=== PATIENT | male | born 1970 | race Caucasian/White ===

== ENCOUNTER 2016-12-19 21:35 | Emergency (ER) | payer OTHER ==
[~2016-12-19] VITALS: Ht 172.7 cm; Wt 81.6 kg
[~2016-12-19 21:35] MED LIST: CIPRO250 M1 PO; DOXYCYCLINE HY100 M4 PO; FLOMAX(MONOGRA0.4 MG PO; FLOMAX0.4 M1 PO; HYDROCODON-ACE1 EAC2 PO; MOTRIN 600 MG600 MG PO; NORCO 325 MG-51 TAB PO; PERCOCET 325 MG1 TA2 PO; PRINIVIL 5MG5 MG PO; ZOFRAN ODT4 MG PO
[2016-12-19 23:17] LABS: ABSOLUTE BASOPHIL COUNT 0 /CUMM (0.0-0.2); ABSOLUTE EOSINOPHIL COUNT 0.2 /CUMM (0.0-0.7); ABSOLUTE GRANULOCYTE CT 8.7 /CUMM (1.4-6.5); ABSOLUTE LYMPH COUNT 1.7 /CUMM (1.2-3.4); ABSOLUTE MONOCYTE COUNT 0.7 /CUMM (0.10-0.60); BASOPHIL % 0.2 % (0.0-2.0); EOSINOPHIL % 1.8 % (0-5); GRANULOCYTE % 76.7 % (42.2-75.2); HEMATOCRIT 45.8 % (42-52); MEAN CORPUSCULAR HGB CONC 33.7 G/DL (33.0-37.0); MEAN PLATELET VOLUME 11.1 FL (7.4-10.4); PLATELET COUNT 191 /CUMM (130-400); RBC DISTRIBUTION WIDTH 13.6 % (11.5-14.5); RED BLOOD CELL CT 5.33 /CUMM (4.70-6.10); WHITE BLOOD CELL COUNT 11.4 /CUMM (4.8-10.8)
--- NOTE | 2016-12-19 23:32 | ED GI/GU/ABDOMINAL COMPLAINT ---
See Addendum History of Present Illness General Chief Complaint: Abdominal Pain/Flank Pain Stated Complaint: RIGHT FLANK PAIN Source: patient, family, old records Exam Limitations: no limitations Vital Signs & Intake/Output Vital Signs & Intake/Output Vital Signs Date Time Temp Pulse Resp B/P B/P Pulse O2 O2 Flow FiO2 Mean Ox Delivery Rate 12/20 0045 96.4 76 20 131/87 98 Room Air 12/20 0024 98.0 78 18 152/72 12/19 2218 98.0 77 18 158/101 97 Room Air ED Intake and Output 12/20 0000 12/19 1200 Intake Total Output Total Balance Patient 81.647 kg Weight Weight Reported by Patient Measurement Method Allergies Coded Allergies: phenobarbital (Severe, "HE ALMOST FROM IT" PER MOM 12/19/16) Penicillins (Intermediate, HIVES 05/21/16) Reconcile Medications Ciprofloxacin HCl (Cipro) 250 MG TABLET 1 TAB PO BID UTI Doxycycline Hyclate 100 MG TABLET 1 TAB PO BID CELLULITIS LEFT KNEE Hydrocodone/Acetaminophen (Hydrocodon-Acetaminophen 5-325) 1 EACH TABLET 1-2 TAB PO Q4-6 PRN PRN pain Lisinopril (Prinivil) 5 MG TABLET 1 TAB PO DAILY HYPERTENSION (Reported) Tamsulosin HCl (Flomax) 0.4 MG CAP.ER.24H 1 CAP PO DAILY nephrolithiasis Triage Note: PT TO ED C/O RT SIDE PAIN SINCE THIS AM. "I THINK IT'S ANOTHER KIDNEY STONE" Triage Nurses Notes Reviewed? yes HPI: This is a 46-year-old male with past medical history significant for multiple kidney stones who comes in for chief complaint of right-sided flank pain. He states that the pain is been on and off since this a.m. but in the evening it got acutely worse. He stated that he had one episode of emesis in the ED. Patient states this pain feels like his usual kidney stone pain. Of note, he has followed up with Dr. kc the urologist for workup of his repeated episodes of renal calculi. Patient states that the workup has been largely negative. His lab workup is significant for with large amounts of RBC, hemoglobin and white blood cells with leukocyte esterase. Hemoglobin 15.4, hematocrit 45.8. White count 11.4. Patient denies any itching or burning symptoms at this time. However he states his urine has looked a little bit "off." He states the past week or so; the color has been a little darker than usual. Denies any fevers night sweats or decreasing the frequency of urination. Past History Travel History Traveled to [place] past 21 day No Medical History Any Pertinent Medical History? see below for history Cardiovascular: hypertension Renal: nephrolithiasis Surgical History Surgical History: non-contributory Psychosocial History What is your primary language Albanian Tobacco Use: Never used ETOH Use: denies use Illicit Drug Use: denies illicit drug use Family History Hx Contributory? No Review of Systems Review of Systems Constitutional: Denies: chills, fever, weakness. EENTM: Reports: no symptoms. Respiratory: Denies: cough, short of breath. Cardiovascular: Denies: chest pain, palpitations. GI: Reports: abdominal pain, vomiting. Genitourinary: Reports: hematuria. Denies: discharge, dysuria, frequency, hesitation. Musculoskeletal: Reports: no symptoms. Skin: Reports: no symptoms. Physical Exam Physical Exam General Appearance: well developed/nourished, no apparent distress, alert Head: atraumatic Eyes: Bilateral: normal appearance, PERRL. Neck: normal inspection Respiratory: normal breath sounds, chest non-tender, no respiratory distress, quiet respiration, lungs clear Cardiovascular: regular rate/rhythm Gastrointestinal: normal bowel sounds, soft, non-tender Core Measures ACS in differential dx? No Severe Sepsis Present: No Septic Shock Present: No Progress Differential Diagnosis: ureterolithiasis, urinary retention, urethritis, UTI/ pyelo Plan of Care: Orders Procedure Date/time Status URINALYSIS 12/20 2227 Complete COMPREHENSIVE METABOLIC PANEL 12/20 2227 Complete CBC WITHOUT DIFFERENTIAL 12/20 2227 Complete Current Medications Sig/Flavio Start time Last Medication Dose Stop Time Status Admin Ciprofloxacin 500 MG ONCE ONE 12/19 2345 CAN (Cipro) 12/19 2346 Laboratory Tests 12/19/16 2308: Urinalysis MOD H, Urine Color YEL, Urine Clarity HAZY H, Urine pH 6.0, Ur Specific [place] > 1.030, Urine Protein NEG, Urine Ketones NEG, Urine Nitrite NEG, Urine Bilirubin NEG, Urine Urobilinogen 0.2, Ur Leukocyte Esterase TRACE H , Ur Microscopic SEDIMENT EXAMINED, Urine RBC 25-50 H, Urine WBC 5-10 H, Ur Epithelial Cells FEW, Urine Bacteria MOD H, Hyaline Casts 1-3 H, Urine Mucus MOD H, Urine Hemoglobin LARGE H, Urine Glucose NEG 12/19/16 2305: Anion Gap 12, Estimated GFR > 60, BUN/Creatinine Ratio 14.2, Glucose 115 H, Calcium 9.3, Total Bilirubin 0.8, AST 29, ALT 48, Alkaline Phosphatase 65, Total Protein 7.5, Albumin 4.5, Globulin 3.0, Albumin/Globulin Ratio 1.5, CBC w Diff NO MAN DIFF REQ, RBC 5.33, MCV 86.0, MCH 29.0, RDW 13.6, MPV 11.1 H, Gran % 76.7 H, Lymphocytes % 14.9 L, Monocytes % 6.4, Eosinophils % 1.8, Basophils % 0.2, Absolute Granulocytes 8.7 H, Absolute Lymphocytes 1.7, Absolute Monocytes 0.7 H, Absolute Eosinophils 0.2, Absolute Basophils 0, PUBS MCHC 33.7 Initial ED EKG: none Departure Departure Disposition: HOME OR SELF CARE Condition: Stable Clinical Impression Primary Impression: UTI (urinary tract infection) Qualifiers: Urinary tract infection type: site unspecified Hematuria presence: with hematuria Qualified Codes: N39.0 - Urinary tract infection, site not specified; R31.9 - Hematuria, unspecified Secondary Impressions: Nephrolithiasis Referrals: MARY ARAMBULA MD (PCP/Family) Additional Instructions: 1. Follow-up with your primary care doctor and urologist regarding this episode of nephrolithiasis (kidney stone). 2. Finish up your course of ciprofloxacin, which is your antibiotic, for infection. 3. If your symptoms worsen or if you started having fever, vomiting, or increased blood in urine then return back to ED immediately. Departure Forms: Customer Survey General Discharge Information Prescriptions: Current Visit Scripts Tamsulosin HCl (Flomax) 1 CAP PO DAILY #7 CAP Ciprofloxacin HCl (Cipro) 1 TAB PO BID #14 TAB
[2016-12-20 00:45] VITALS: BP 131/87
== END 2016-12-20 00:53 ==
LOC: ERH 21:35
PROVIDERS: Emergency Medicine
DX: N39.0 Urinary tract infection, site not specified (principal); N20.0 Calculus of kidney
CPT/HCPCS: 81001; 96360; 96372; J1885; J3101

== ENCOUNTER → 2017-12-06 | Day surgery (SDC) | payer OTHER ==
[~2017-12-06] VITALS: Ht 175.3 cm; Wt 83.0 kg
[~2017-12-06] MED LIST changes: +LISINOPRIL10 M1 PO
--- NOTE | 2017-12-06 12:27 | ED GI/GU/ABDOMINAL COMPLAINT ---
History of Present Illness General Chief Complaint: Abdominal Pain/Flank Pain Stated Complaint: RT SIDE FLANK PAIN Source: patient, family, old records Exam Limitations: no limitations Vital Signs & Intake/Output Vital Signs & Intake/Output Vital Signs Date Time Temp Pulse Resp B/P B/P Pulse O2 O2 Flow FiO2 Mean Ox Delivery Rate 12/06 1216 97.1 77 18 164/91 96 Room Air Allergies Coded Allergies: phenobarbital (Severe, "HE ALMOST FROM IT" PER MOM 12/19/16) Penicillins (Intermediate, HIVES 05/21/16) Reconcile Medications Lisinopril 10 MG TABLET 1 TAB PO DAILY BP (Reported) Triage Note: PT TO ER C/C RIGHT FLANK PAIN X 1 DAY. DENIES N/V/D. DENIES URINARY S/S. Triage Nurses Notes Reviewed? yes HPI: 47M PMH HTN, nephrolithiasis presenting with acute onset of right sided abdominal and flank pain that woke him up from sleep. Pain was 8/10 this morning, 6/10 now, non-radiating, not associated with movement or relieved by anything. Feels similar to prior episodes of kidney stones. Denies hematuria, dysuria, fever, chills, vomiting, chest pain, SOB. Reports nausea. Past History Travel History Traveled to [place] past 21 day No Medical History Any Pertinent Medical History? see below for history Cardiovascular: hypertension Renal: nephrolithiasis Surgical History Surgical History: non-contributory Psychosocial History What is your primary language Micronesian Tobacco Use: Never used Family History Hx Contributory? No Review of Systems Review of Systems Constitutional: Reports: no symptoms. EENTM: Reports: no symptoms. Respiratory: Reports: no symptoms. Cardiovascular: Reports: no symptoms. GI: Reports: no symptoms. Genitourinary: Reports: no symptoms. Musculoskeletal: Reports: no symptoms. Skin: Reports: no symptoms. Neurological/Psychological: Reports: no symptoms. Hematologic/Endocrine: Reports: no symptoms. Immunologic/Allergic: Reports: no symptoms. All Other Systems: Reviewed and Negative Physical Exam Physical Exam General Appearance: well developed/nourished, mild distress Head: atraumatic, normal appearance Eyes: Bilateral: normal appearance. Ears, Nose, Throat, Mouth: hearing grossly normal, moist mucous membrane Neck: normal inspection, supple, full range of motion Respiratory: normal breath sounds Cardiovascular: regular rate/rhythm Gastrointestinal: soft, non-tender, guarding Back: normal inspection, normal range of motion, No CVA tenderness Extremities: normal range of motion Neurologic/Psych: awake, alert, oriented x 3, normal mood/affect Skin: intact, normal color, warm/dry Core Measures ACS in differential dx? No Sepsis Present: No Sepsis Focused Exam Completed? No Progress Differential Diagnosis: AAA, AMI, appendicitis, biliary colic, bowel obstruction , colon cancer, cholecystitis, diverticulitis, epididymitis, esophageal varices, gastritis, hepatitis, hernia, hemorrhoids, ischemic bowel, inflamm bowel dis, Elaina-Sam tear, orchitis, pancreatitis, prostatitis, peptic ulcer, PUD/GERD, perforated viscous, pyelonephritis, SBO, STD, testicular torsion, ureterolithiasis, urinary retention, urethritis, UTI/pyelo Plan of Care: Orders Procedure Date/time Status URINALYSIS 12/06 1212 Active COMPREHENSIVE METABOLIC PANEL 12/06 1212 Complete CBC WITHOUT DIFFERENTIAL 12/06 1212 Complete Current Medications Sig/Flavio Start time Last Medication Dose Stop Time Status Admin Morphine Sulfate 4 MG ONCE ONE 12/06 1415 UNVr (Morphine) 12/06 1416 Laboratory Tests 12/06/17 1234: Anion Gap 13, Estimated GFR > 60, BUN/Creatinine Ratio 14.2, Glucose 120 H, Calcium 9.4, Total Bilirubin 1.1, AST 34, ALT 48, Alkaline Phosphatase 65, Total Protein 7.9, Albumin 4.6, Globulin 3.3, Albumin/Globulin Ratio 1.4, CBC w Diff NO MAN DIFF REQ, RBC 5.65, MCV 86.0, MCH 28.5, MCHC 33.2, RDW 14.1, MPV 11.3 H, Gran % 82.9 H, Lymphocytes % 10.3 L, Monocytes % 5.8, Eosinophils % 0.7, Basophils % 0.3, Absolute Granulocytes 8.5 H, Absolute Lymphocytes 1.1 L, Absolute Monocytes 0.6, Absolute Eosinophils 0.1, Absolute Basophils 0 Diagnostic Imaging: Viewed by Me: CT Scan. Discussed w/RAD: CT Scan. Radiology Impression: PATIENT: KAREN MESSER PRESENT AGE: 47 PATIENT ACCOUNT NO: [id number] : 70 LOCATION: [facility] ORDERING PHYSICIAN: Tasneem Keller MD SERVICE DATE: 12/06/17-1226 EXAM TYPE: CAT - CT ABD & PELVIS W/O IV CONTRAS EXAMINATION: CT ABDOMEN AND PELVIS WITHOUT CONTRAST CLINICAL INFORMATION: 47-year-old male with severe right-sided abdominal pain and guarding. Evaluate for urinary tract obstruction and renal stone. COMPARISON: CT abdomen and pelvis from 09/13/2014. TECHNIQUE: Multidetector volumetric imaging was performed from the superior aspect of the liver through the pubic symphysis. Sagittal and coronal reformatted images were obtained on the technologist's workstation. DLP: 343 mGy-cm FINDINGS: LUNG BASES : The visualized lung bases are unremarkable. LIVER, GALLBLADDER, AND BILIARY TREE: Unremarkable. PANCREAS: Unremarkable. SPLEEN: Unremarkable. ADRENAL GLANDS : Unremarkable. KIDNEYS AND URETERS: Kidneys are normal in size. Moderate right hydronephrosis and perinephric edema caused by 0.4 x 0.6 x 1.3 cm calculus, 488 HU attenuation, at the ureteropelvic junction. Small, 0.3 cm calyceal stone is present within the lower pole of the left kidney. The left ureter is unremarkable. BLADDER: Unremarkable. GASTROINTESTINAL TRACT: Stomach is unremarkable. Appendix is normal. Diverticulosis of descending and sigmoid colon without diverticulosis. ABDOMINAL WALL: Small fat-containing umbilical hernia measures 1.3 cm wide. LYMPH NODES: No pathologic sized lymph nodes within the abdomen or pelvis. VASCULAR: Mild atherosclerosis of the abdominal aorta without aneurysm. PELVIC VISCERA: Mildly enlarged prostate gland, which has some central calcification, measures approximately 5 x 3.6 cm. No pelvic free fluid. OSSEOUS STRUCTURES: Mild dextrocurvature of the lumbar spine. Again noted are L5 pars interarticularis defects, L5-S1 disc degeneration with vacuum disc phenomenon, and 0.7 cm of grade 1 anterolisthesis of L5 on S1. IMPRESSION: Moderate right hydronephrosis and perinephric edema caused by a calculus of the ureteropelvic junction. DICTATED BY: Kishore Mora MD DATE/TIME DICTATED:12/06/171322 SUPPLY CHAIN INTERN:MAGDA DATE/TIME TRANSCRIBED:12/06/171322 CONFIDENTIAL, DO NOT COPY WITHOUT APPROPRIATE AUTHORIZATION. <Electronically signed in Other Vendor System> SIGNED BY: Kishore Mora MD 12/06/171332 Initial ED EKG: none Departure Departure Disposition: STILL A PATIENT Condition: Stable Clinical Impression Primary Impression: Nephrolithiasis Secondary Impressions: Hydronephrosis, right, Obstructive uropathy Referrals: Jacinto Cabrera MD (PCP/Family) Departure Forms: Customer Survey General Discharge Information OR/GI Note Spoke With: Kanu EARL,Luz Elena ED Treatment Decision: KAREN MESSER requires urgent operative management or an emergent procedure that cannot be performed in the Emergency Room setting.
[2017-12-06 12:43] LABS: ABSOLUTE BASOPHIL COUNT 0 /CUMM (0.0-0.2); ABSOLUTE EOSINOPHIL COUNT 0.1 /CUMM (0.0-0.7); ABSOLUTE GRANULOCYTE CT 8.5 /CUMM (1.4-6.5); ABSOLUTE LYMPH COUNT 1.1 /CUMM (1.2-3.4); ABSOLUTE MONOCYTE COUNT 0.6 /CUMM (0.10-0.60); BASOPHIL % 0.3 % (0.0-2.0); EOSINOPHIL % 0.7 % (0-5); GRANULOCYTE % 82.9 % (42.2-75.2); HEMATOCRIT 48.6 % (42-52); MEAN CORPUSCULAR HGB 28.5 PG (27.0-31.0); MEAN CORPUSCULAR HGB CONC 33.2 G/DL (33.0-37.0); MEAN PLATELET VOLUME 11.3 FL (7.4-10.4); PLATELET COUNT 221 /CUMM (130-400); RBC DISTRIBUTION WIDTH 14.1 % (11.5-14.5); RED BLOOD CELL CT 5.65 /CUMM (4.70-6.10); WHITE BLOOD CELL COUNT 10.3 /CUMM (4.8-10.8)
--- NOTE | 2017-12-06 13:33 | CT SCAN REPORT ---
EXAMINATION: CT ABDOMEN AND PELVIS WITHOUT CONTRAST CLINICAL INFORMATION: 47-year-old male with severe right-sided abdominal pain and guarding. Evaluate for urinary tract obstruction and renal stone. COMPARISON: CT abdomen and pelvis from 09/13/2014. TECHNIQUE: Multidetector volumetric imaging was performed from the superior aspect of the liver through the pubic symphysis. Sagittal and coronal reformatted images were obtained on the technologist's workstation. DLP: 343 mGy-cm FINDINGS: LUNG BASES: The visualized lung bases are unremarkable. LIVER, GALLBLADDER, AND BILIARY TREE: Unremarkable. PANCREAS: Unremarkable. SPLEEN: Unremarkable. ADRENAL GLANDS: Unremarkable. KIDNEYS AND URETERS: Kidneys are normal in size. Moderate right hydronephrosis and perinephric edema caused by 0.4 x 0.6 x 1.3 cm calculus, 488 HU attenuation, at the ureteropelvic junction. Small, 0.3 cm calyceal stone is present within the lower pole of the left kidney. The left ureter is unremarkable. BLADDER: Unremarkable. GASTROINTESTINAL TRACT: Stomach is unremarkable. Appendix is normal. Diverticulosis of descending and sigmoid colon without diverticulosis. ABDOMINAL WALL: Small fat-containing umbilical hernia measures 1.3 cm wide. LYMPH NODES: No pathologic sized lymph nodes within the abdomen or pelvis. VASCULAR: Mild atherosclerosis of the abdominal aorta without aneurysm. PELVIC VISCERA: Mildly enlarged prostate gland, which has some central calcification, measures approximately 5 x 3.6 cm. No pelvic free fluid. OSSEOUS STRUCTURES: Mild dextrocurvature of the lumbar spine. Again noted are L5 pars interarticularis defects, L5-S1 disc degeneration with vacuum disc phenomenon, and 0.7 cm of grade 1 anterolisthesis of L5 on S1. IMPRESSION: Moderate right hydronephrosis and perinephric edema caused by a calculus of the ureteropelvic junction.
[2017-12-06 16:42] VITALS: BP 135/96
--- NOTE | 2017-12-06 17:39 | Cons- Urology ---
General Information and HPI Consulting Request Date of Consult: 12/06/17 Requested By: Mio Reason for Consult: right upper quadrant pain and kidney stone Source of Information: patient Exam Limitations: no limitations History of Present Illness: A 47-year-old male with a history of hypertension and nephrolithiasis. He presented today to the ER with right upper quadrant pain and nausea and dry heaving. CT scan revealed a right 1.3 cm UPJ stone that was causing some mild hydronephrosis and obstruction. He has never had surgical intervention for kidney stones but admits that he has had multiple episodes of renal colic over the years. He also admits that he does not drink a lot of fluids other than soda. He has no other significant medical history. He does admit to having one urinary tract infection in his life and not a chronic history. His regular urologist is Tej Neri. Allergies/Medications Allergies: Coded Allergies: phenobarbital (Severe, "HE ALMOST FROM IT" PER MOM 12/19/16) Penicillins (Intermediate, HIVES 05/21/16) Home Med List: Lisinopril 10 MG TABLET 1 TAB PO DAILY BP (Reported) Current Medications: Current Medications Sig/Flavio Start time Last Medication Dose Route Stop Time Status Admin Morphine Sulfate 0 .STK-MED ONE 12/06 1429 DC .ROUTE Morphine Sulfate 4 MG ONCE ONE 12/06 1415 DC 12/06 IV 12/06 1416 1428 Morphine Sulfate 0 .STK-MED ONE 12/06 1239 DC .ROUTE Morphine Sulfate 4 MG ONCE ONE 12/06 1230 DC 12/06 IV 12/06 1231 1230 Ondansetron HCl 4 MG ONCE ONE 12/06 1245 DC 12/06 IV 12/06 1246 1245 Ondansetron HCl 0 .STK-MED ONE 12/06 1239 DC .ROUTE Sodium Chloride 1,000 ML BOLUS ONE 12/06 1230 DC 12/06 IV 12/06 1329 1230 Past History Medical History Blood Transfusion Hx: No Neurological: NONE EENT: NONE Cardiovascular: hypertension Respiratory: NONE Gastrointestinal: NONE Hepatic: NONE Renal: NONE, nephrolithiasis Musculoskeletal: NONE Psychiatric: NONE Endocrine: NONE Blood Disorders: NONE Cancer(s): NONE PARTS COUNTERMAN/Reproductive: NONE Surgical History Pertinent Surgical History: non-contributory Psychosocial History Where Do You Live? Home Who Do You Live With? self Services at Home: None Primary Language: Moroccan Smoking Status: Unknown If Ever Smoked ETOH Use: occasional use Illicit Drug Use: denies illicit drug use Living Will? unknown Power of Photographic Spotter/HCP? 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 Ambulation: independent IADLs Independent: shopping, housework, finances, food prep, telephone, transportation , medication admin. 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 no Review of Systems Review of Systems Constitutional: Reports: no symptoms. EENTM: Reports: no symptoms. Cardiovascular: Reports: no symptoms. Respiratory: Reports: no symptoms. GI: Reports: abdominal pain, nausea (dry heaving). Genitourinary: Reports: no symptoms. Musculoskeletal: Reports: no symptoms. Skin: Reports: no symptoms. Neurological/Psychological: Reports: no symptoms. Hematologic/Endocrine: Reports: no symptoms. Immunologic/Allergic: Reports: no symptoms. Exam & Diagnostic Data Vital Signs and I&O Vital Signs Date Time Temp Pulse Resp B/P B/P Pulse O2 O2 Flow FiO2 Mean Ox Delivery Rate 12/06 1642 98.0 71 16 135/96 95 Room Air 12/06 1439 98.4 88 18 144/103 98 12/06 1216 97.1 77 18 164/91 96 Room Air Intake & Output 12/06 1600 12/06 0800 12/06 0000 12/05 1600 12/05 0800 12/05 0000 Intake Total 1000 Output Total Balance 1000 Intake, IV 1000 Patient 83.007 kg Weight Weight Reported by Patient Measurement Method Physical Exam General Appearance: well developed/nourished, no apparent distress, alert, awake , anxious Head: atraumatic, normal appearance Eyes: Bilateral: normal appearance. Ears, Nose, Throat: normal ENT inspection Neck: normal inspection Respiratory: normal breath sounds Cardiovascular: regular rate/rhythm Gastrointestinal: soft, non-tender Rectal: deferred Back: normal inspection Extremities: normal inspection Neurologic/Psych: awake, alert, oriented x 3 Cranial Nerves: normal hearing, normal speech Skin: intact, normal color, warm/dry Reproductive: Normal male genitalia Last 24 Hours of Labs: Laboratory Tests 12/06 12/06 1419 1234 Chemistry Sodium (137 - 145 mmol/L) 144 Potassium (3.5 - 5.1 mmol/L) 4.4 Chloride (98 - 107 mmol/L) 106 Carbon Dioxide (22 - 30 mmol/L) 25 Anion Gap (5 - 16) 13 BUN (9 - 20 mg/dL) 17 Creatinine (0.7 - 1.2 mg/dL) 1.2 Estimated GFR (>60 ml/min) > 60 BUN/Creatinine Ratio (7 - 25 %) 14.2 Glucose (65 - 99 mg/dL) 120 H Calcium (8.4 - 10.2 mg/dL) 9.4 Total Bilirubin (0.2 - 1.3 mg/dL) 1.1 AST (17 - 59 U/L) 34 ALT (21 - 72 U/L) 48 Alkaline Phosphatase (< 127 U/L) 65 Total Protein (6.3 - 8.2 g/dL) 7.9 Albumin (3.5 - 5.0 g/dL) 4.6 Globulin (1.9 - 4.2 gm/dL) 3.3 Albumin/Globulin Ratio (1.1 - 2.2 %) 1.4 Hematology CBC w Diff NO MAN DIFF REQ WBC (4.8 - 10.8 /CUMM) 10.3 RBC (4.70 - 6.10 /CUMM) 5.65 Hgb (14.0 - 18.0 G/DL) 16.1 Hct (42 - 52 %) 48.6 MCV (80.0 - 94.0 FL) 86.0 MCH (27.0 - 31.0 PG) 28.5 MCHC (33.0 - 37.0 G/DL) 33.2 RDW (11.5 - 14.5 %) 14.1 Plt Count (130 - 400 /CUMM) 221 MPV (7.4 - 10.4 FL) 11.3 H Gran % (42.2 - 75.2 %) 82.9 H Lymphocytes % (20.5 - 51.1 %) 10.3 L Monocytes % (1.7 - 9.3 %) 5.8 Eosinophils % (0 - 5 %) 0.7 Basophils % (0.0 - 2.0 %) 0.3 Absolute Granulocytes (1.4 - 6.5 /CUMM) 8.5 H Absolute Lymphocytes (1.2 - 3.4 /CUMM) 1.1 L Absolute Monocytes (0.10 - 0.60 /CUMM) 0.6 Absolute Eosinophils (0.0 - 0.7 /CUMM) 0.1 Absolute Basophils (0.0 - 0.2 /CUMM) 0 Urines Urine Color (YEL,AMB,STR) YEL Urine Clarity (CLEAR) CLEAR Urine pH (5.0 - 8.0) 5.5 Ur Specific [place] (1.001 - 1.035) >= 1.030 Urine Protein (NEG,<30 MG/DL) TRACE H Urine Ketones (NEG) NEG Urine Nitrite (NEG) NEG Urine Bilirubin (NEG) NEG Urine Urobilinogen (0.1 - 1.0 EU/dl) 0.2 Ur Leukocyte Esterase (NEG) SMALL H Ur Microscopic SEDIMENT EXAMINED Urine RBC (0 - 5 /HPF) 5-10 H Urine WBC (0 - 2 /HPF) RARE Urine Crystals 1+ UR AC H Urine Bacteria (NEG/NONE) FEW H Urine Mucus (FEW,NONE) FEW Urine Hemoglobin (NEG) SMALL H Urine Glucose (N MG/DL) NEG Imaging Results: CT scan with a right UPJO renal stone 1.3cm Assessment/Plan Assessment/Plan This is a 47-year-old male with a history of hypertension and nephrolithiasis. He's had multiple bouts of renal colic but has never had surgical intervention. He presented to the ER today with right upper quadrant abdominal pain and was found to have an obstructing 1.3 cm right UPJ stone. He was consented for a cystoscopy and right ureteral stent placement. He was explained that emergently we generally do not treat the kidney stone that is the culprit of his pain. He can have the stone addressed as elective surgery at another time. The stone with either Dr. hernandez myself. Given the risk benefits and alternatives of the right ureteral stent placement and what to expect postoperatively. All questions were answered for him and his mother. Consent was signed with all questions answered. Problem List: 1. Kidney stone Consult Acknowledgment - Thank you for your consult request.
--- NOTE | 2017-12-06 17:43 | Operative Report ---
Operative/Inv Procedure Report Surgery Date: 12/06/17 Name of Procedure: right stent placement with cystoscopy Pre-Operative Diagnosis: right obstructing UPJ stone Post-Operative Diagnosis: same Estimated Blood Loss: scant Surgeon/Technical Assistant: Luz Elena Bobby MD Anesthesia: laryngeal mask airway Drains: 6x26cm stent Specimens: urine culture Complications: none Condition: stable Operative Indication: right UPJ obstructing stone 1.3cm Operative/Procedure Note Note: This an operative dictation on patient Tej Lopes. History of hypertension nephrolithiasis with multiple renal colic in the past. He was seen in the ER with renal colic due to a right obstructing UPJ stone. Cytostome was 1.3 cm on CAT scan. He was consented for right stent placement and cystoscopy. Elective surgery with then addressed the 1.3 cm sizable stone. All questions were answered for him and his mother. Patient was taken to the operating room placed on the operating table in the supine position. Timeout was performed. IV antibiotics 400 mg of Cipro were infused. He was placed in the dorsolithotomy position after LMA anesthesia was begun. His genitalia was prepped and draped in the standard sterile fashion. A cystoscopy was performed the bladder was globally inspected. There were no abnormalities appreciated. No lesions masses or trabeculation. Ureteral orifices were in their normal anatomic position. The right ureteral orifice was cannulated with a Solo guidewire with fluoroscopic guidance. There was cloudy pink urine that was expelled from the ureteral orifice once the wire was passed. This urine was sent off for urine culture specimen. Once this wire was seen to be in good position 6 x 26 cm ureteral stent was placed over the wire. The stent was also seen to be in good position by fluoroscopy and the wire was removed. The proximal portion was curled in the renal pelvis and the distal portion was seen curled in the bladder by cystoscopic view. Bladder was emptied and the patient was cleaned of the Betadine solution. Patient tolerated the procedure well. Findings: Right UPJ obstructing stone 1.3 cm in size. Cloudy pink urine from the right ureteral orifice Discharge Disposition: PACU
--- NOTE | 2017-12-06 22:24 | RADIOLOGY REPORT ---
EXAMINATION: XR ABDOMEN CLINICAL INDICATION: Right cysto in OR. COMPARISON: CT abdomen/pelvis 12/06/2017. TECHNIQUE: Single intraoperative radiograph of the right abdomen were obtained for Dr. Luz Elena Bobby. FINDINGS: There is a single intraoperative radiograph which shows the proximal end of the ureteral stent coiled within the expected region of the renal pelvis. Fluoroscopy time: 3 seconds KVP: 98 mAs 1.44 IMPRESSION: Right cystoscopy with stent placement. Please see the operative report for full and complete details.
== END ==
LOC: ERH 12:02 → ER-OR 12:19 → STS 17:24
PROVIDERS: Physician Assistant Medical
DX: N20.0 Calculus of kidney (principal); N13.9 Obstructive and reflux uropathy, unspecified; I10 Essential (primary) hypertension
CPT/HCPCS: 74018; 74176; 81001; 87086; 87088; 96361; 96374; 96375; 96376; C2617; J2250; J2405; J3010

== ENCOUNTER → 2017-12-12 | Day surgery (SDC) | payer OTHER ==
[~2017-12-12] VITALS: Ht 175.3 cm; Wt 83.0 kg
--- NOTE | 2017-12-12 12:27 | Operative Report ---
Operative/Inv Procedure Report Surgery Date: 12/12/17 Name of Procedure: right ureteroscopy with laser lithotripsy and stone extraction with stent replacement Pre-Operative Diagnosis: right renal stone Post-Operative Diagnosis: same Estimated Blood Loss: less than 50ml Surgeon/Blood Bank Custodian: Luz Elena Bobby MD Anesthesia: laryngeal mask airway Drains: 6x26cm stent Specimens: stone fragments Complications: none Condition: stable Operative Indication: right renal stone with renal colic urgent stent placed 6 days ago for UPJO Operative/Procedure Note Note: 47yo male with a hx of kidney stones. Seen in the ER 6days ago for renal colic due to UPJO by 1.3cm stone and hydro. He had an urgent stent placed for pain relief and then later elective stone surgery. He has tolerated the stent without issue. He was given the risks, benefits and alternatives of ureteroscopy and laser lithotripsy and he wished to proceed. This was also stated in front of his parents. All questions were answered. Consent was signed. Patient was taken to the operating placed on the operating table in supine position. Timeout was performed. IV antibiotics was infused. LMA anesthesia was started and the patient was placed in the dorsal lithotomy position. SCDs were placed bilaterally. He was prepped and draped in the standard sterile fashion. Cystoscopy was performed and the stent was grasped and brought out to the urethral opening. This was attempted to be cannulated with the solo guidewire but was unsuccessful. As result a cystoscopy was performed again and a solo guidewire was placed up the renal pelvis without difficulty with fluoroscopic guidance. A second safety superstiff wire was then placed with the dual-lumen catheter. This was clamped as a safety wire. A 35 cm ureteral access sheath was then placed first the inner sheath followed by the inner and outer sheath together. This was done without difficulty. Fluoroscopic guidance was used throughout the case. The flexible digital ureteroscope was then placed into the renal pelvis without issue. All the calyces were again examined and the stone was in the renal pelvis. He had a large stone in the renal pelvis. The stone was fragmented with a 375 laser fiber to smaller fragments. 0 tip nitinol basket was then used to remove the stones. Smaller fragments that were too small to grasp with the basket were left to be passed by the patient with ingestion of water. There was no sign of major injury only areas where the laser touched the mucosa causing some bleeding. He was a heavy breather and the movement made it difficult to stay on the stone as it was being fragmented. Again all the calyces were examined and no large stones were remaining. The stone fragments were sent to pathology. The ureteroscope was removed along with the access sheath and the ureter was examined on the way out. No injury was appreciated and no other stones were seen. The safety wire was then used with the cystoscope to place a 6 x 26cm ureteral stent. This was in good position with the proximal end in the renal pelvis and the distal portion in the bladder which was seen fluoroscopically and cystoscopically. The patient tolerated the procedure well and she was transferred to the recovery room in stable condition. Findings: large right renal stone. Discharge Disposition: PACU
--- NOTE | 2017-12-12 16:58 | RADIOLOGY REPORT ---
EXAMINATION: XR ABDOMEN CLINICAL INDICATION: Right ureteroscopy with stent placement. COMPARISON: E.G. abdomen and pelvis 11/28/2017 TECHNIQUE: Fluoroscopy was provided in the OR during cystoscopy and right ureteral stent placement. A total of 10 fluoroscopic spot images were obtained. FINDINGS: 10 fluoroscopic images were obtained in the OR during ureteroscopy. Fluoroscopy time: 0.2 minutes Cumulative dose: 3.17 mgy IMPRESSION: Fluoroscopy was provided in the OR during right ureteroscopy. Please refer to operative note for full procedure details.
== END ==
LOC: STS 01:54
DX: N20.0 Calculus of kidney (principal); Z87.442 Personal history of urinary calculi; I10 Essential (primary) hypertension; Z87.820 Personal history of traumatic brain injury
CPT/HCPCS: 74018; 82355; 93005; 93010; J0131; J0744; J2250; J7060